=== PATIENT | male | born 1995 | race Caucasian/White ===

== ENCOUNTER 2023-06-06 23:00 | Emergency (ER) | payer SELFPAY ==
[2023-06-06 23:09] VITALS: BP 131/90; PULSE 90; RESP 18; TEMP 97.4; BMI 29.5
[2023-06-07] MEDS ORDERED: CYCLOBENZAPRINE HCL 10 MG TABLET (FP) ONE (00:31)
[2023-06-07] MEDS ORDERED: KETOROLAC TROMETHAMINE 30 MG/1 ML VIAL ONE (00:32)
[2023-06-07] MEDS ORDERED: ACETAMINOPHEN 500 MG TABLET (FP) ONE (00:42)
[2023-06-07] MEDS: ACETAMINOPHEN 500 MG TABLET (FP) PO ONE (00:46)
[2023-06-07] MEDS: CYCLOBENZAPRINE HCL 5 MG TABLET PO ONE (00:46)
[2023-06-07] MEDS: KETOROLAC TROMETHAMINE 30 MG/1 ML VIAL IM ONE (00:46)
== END 2023-06-07 02:38 | disposition home or self-care (01) ==
LOC: JER 23:00
PROC: 3E0233Z Introduction of Anti-inflammatory into Muscle, Percutaneous Approach (ICD-10-PCS; principal; 2023-06-07)
DX: M54.9 Dorsalgia, unspecified (principal); M54.30 Sciatica, unspecified side; R20.2 Paresthesia of skin
CPT/HCPCS: 99284-25

== ENCOUNTER 2023-07-08 19:53 | Emergency (ER) | payer SELFPAY ==
[2023-07-08 20:00] VITALS: BP 120/69; PULSE 85; RESP 18; TEMP 97.7; BMI 29.5
[2023-07-08] MEDS ORDERED: LIDOCAINE 4% PATCH TP ONE (21:44)
[2023-07-08] MEDS ORDERED: ACETAMINOPHEN 325 MG TABLET (FP) ONE (21:44)
[2023-07-08] MEDS ORDERED: METHOCARBAMOL 500 MG TABLET ONE (21:45)
[2023-07-08] MEDS ORDERED: KETOROLAC TROMETHAMINE 30 MG/1 ML VIAL ONE (21:45)
[2023-07-08] MEDS: METHOCARBAMOL 500 MG TABLET PO ONE (21:51)
[2023-07-08] MEDS: KETOROLAC TROMETHAMINE 30 MG/1 ML VIAL IM ONE (21:51)
[2023-07-08] MEDS: LIDOCAINE 4% PATCH TP ONE (21:51)
[2023-07-08] MEDS: ACETAMINOPHEN 500 MG TABLET (FP) PO ONE (21:52)
[2023-07-08] MEDS ORDERED: GABAPENTIN 300 MG CAPSULE PO ONE (23:03)
[2023-07-08] MEDS ORDERED: DEXAMETHASONE 4 MG TABLET (FP) PO ONE (23:04)
[2023-07-09] MEDS ORDERED: LIDOCAINE PATCH REMOVAL MC SCH (10:00)
== END 2023-07-08 23:15 | disposition home or self-care (01) ==
LOC: JERFT 19:53 → JER 19:53
PROC: 3E023GC Introduction of Other Therapeutic Substance into Muscle, Percutaneous Approach (ICD-10-PCS; principal; 2023-07-08)
DX: M54.32 Sciatica, left side (principal); X50.0XXA Overexertion from strenuous movement or load, initial encounter; Y92.69 Other specified industrial and construction area as the place of occurrence of the external cause
CPT/HCPCS: 99284-25

== ENCOUNTER 2023-07-10 19:40 | Emergency (ER) | payer OTHER ==
[2023-07-10 19:51] VITALS: BP 125/81; PULSE 105; RESP 18; TEMP 99; BMI 29.5
[2023-07-10] MEDS ORDERED: CYCLOBENZAPRINE HCL 10 MG TABLET (FP) ONE (21:30)
[2023-07-10] MEDS ORDERED: KETOROLAC TROMETHAMINE 30 MG/1 ML VIAL ONE (21:30)
[2023-07-10] MEDS ORDERED: LIDOCAINE 4% PATCH TP ONE (21:31)
[2023-07-10] MEDS ORDERED: ACETAMINOPHEN 500 MG TABLET (FP) ONE (21:31)
[2023-07-10] MEDS: ACETAMINOPHEN 500 MG TABLET (FP) PO ONE (21:46)
[2023-07-10] MEDS: CYCLOBENZAPRINE HCL 5 MG TABLET PO ONE (21:46)
[2023-07-10] MEDS: LIDOCAINE 4% PATCH TP ONE (21:46)
[2023-07-10] MEDS: KETOROLAC TROMETHAMINE 30 MG/1 ML VIAL IM ONE (21:47)
[2023-07-10] MEDS ORDERED: LIDOCAINE PATCH REMOVAL MC SCH (22:00)
== END 2023-07-10 23:34 | disposition home or self-care (01) ==
LOC: JER 19:40
PROC: 3E0233Z Introduction of Anti-inflammatory into Muscle, Percutaneous Approach (ICD-10-PCS; principal; 2023-07-10)
DX: M54.50 Low back pain, unspecified (principal)
CPT/HCPCS: 99284-25